=== PATIENT | male | born 1990 | race African-American/Black ===

== ENCOUNTER 2017-10-24 19:53 | Emergency (ER) | payer BC, OTHER ==
[2017-10-24 20:08] VITALS: BP 117/81; PULSE 90; TEMP 98.3; BMI 23.1
--- NOTE | 2017-10-24 21:09 | PDOC ---
History of Present Illness - General History Source: Patient Exam Limitations: No Limitations - History of Present Illness Initial Comments: 10/24/17 21:19 The patient is a 27 year old male with no significant PMH who presents to the emergency department with a laceration beneath the left eyebrow. The patient states he was playing basketball at around 5:00PM today when he accidently slammed into another player's head. The laceration is not actively bleeding during presentation. Patient states his tetanus shot is up to date. The patient denies LOC, nausea, vomiting, lightheadedness, double vision or difficulty ambulating after the incident. The patient denies any prior history of problems with wound healing. Allergies: NKA Past surgical history: None reported. Social history: No reported alcohol, drug, or cigarette use. PCP: Dr. Doe Zhu <Sabine Hammond - Last Filed: 10/24/17 21:27> <Mirian Castillo - Last Filed: 10/25/17 05:35> - General Chief Complaint: Injury Stated Complaint: LACERATION Time Seen by Provider: 10/24/17 19:57 Past History <Sabine Hammond - Last Filed: 10/24/17 21:27> - Past Medical History COPD: No - Immunization History Td Vaccination: Yes Immunization Up to Date: Yes - Suicide/Smoking/Psychosocial Hx Smoking Status: No Smoking History: Never smoked Number of Cigarettes Smoked Daily: 0 Cigars Per Day: 0 Hx Alcohol Use: No Drug/Substance Use Hx: No Substance Use Type: None <Mirian Castillo - Last Filed: 10/25/17 05:35> - Past Medical History Allergies/Adverse Reactions: Allergies Allergy/AdvReac Type Severity Reaction Status Date / Time No Known Allergies Allergy Verified 01/06/16 04:49 Home Medications: Ambulatory Orders NK [No Known Home Medication] 01/06/16 Review of Systems - Review of Systems Able to Perform ROS?: Yes Comments:: 10/24/17 21:19 All systems are reviewed and negative except as noted in the HPI <Sabine Hammond - Last Filed: 10/24/17 21:27> *Physical Exam - Vital Signs Last Vital Signs Temp Pulse Resp BP Pulse Ox 98.3 F 90 16 117/81 98 10/24/17 20:00 10/24/17 20:00 10/24/17 20:00 10/24/17 20:00 10/24/17 20:00 - Physical Exam Comments: 10/24/17 21:19 GENERAL: Awake, alert, and fully oriented, in no acute distress HEAD: (+) 2cm full thickness, linear, horizontal laceration below the left eyebrow. LUNGS: Breath sounds equal, clear to auscultation bilaterally. No wheezes, and no crackles HEART: Regular rate and rhythm, normal S1 and S2, no murmurs, rubs or gallops NEUROLOGICAL: Cranial nerves II through XII grossly intact. Normal speech, normal gait SKIN: Warm, Dry, normal turgor, no rashes noted. <Sabine Hammond - Last Filed: 10/24/17 21:27> - Vital Signs Last Vital Signs Temp Pulse Resp BP Pulse Ox 98.3 F 90 16 117/81 98 10/24/17 20:00 10/24/17 20:00 10/24/17 20:00 10/24/17 20:00 10/24/17 20:00 <Mirian Castillo - Last Filed: 10/25/17 05:35> Procedures - Laceration/Wound Repair Left Upper Eye Wound Length: to 2.5 cm Wound Explored: clean Wound's Depth, Shape: linear Irrigated w/ Saline: Yes Betadine Prep: No (Hibiclens/) Anesthesia: 1% Lidocaine (ethanol) Amount of Anesthetic (ccs): 1 Wound Repaired With: Sutures Suture Size/Type: 5:0 Number of Sutures: 4 Layer Closure: No Sterile Dressing Applied: No Splint Applied: No Sling Applied: No Progress: Area around left eyebrow/upper eye laceration cleansed using ethanol/Hibiclens solution sterilely draped. 1 mL of 1% lidocaine used for local anesthesia. Wound edges closely approximated and wound closed using 4 interrupted sutures of 5-0 nylon. Prior to closure, wound base explored. No evidence of muscle disruption or blood vessel injury. After closure, bacitracin ointment was placed on the wound. Patient tolerated procedure well <Mirian Castillo - Last Filed: 10/25/17 05:35> Medical Decision Making - Medical Decision Making Documentation has been prepared under my direction and personally reviewed by me in its entirety. I attest that this documented accurately reflects all work, treatment, procedures and medical decision making performed by me. As noted above, this 27-year-old man, otherwise healthy, presents with left eyebrow laceration sustained when he bumped against another player while playing basketball just prior to presentation. Patient had no loss of consciousness and has no other associated neurologic symptoms. There is no evidence of injury to the orbit; closure wound as noted above. No evidence of muscle or blood vessel damage. Patient discharged with instructions keep his head elevated overnight and keep wound dry for the next 2 days. Bacitracin or Neosporin should be kept on the wound surface until suture removal. Suture removal was suggested to be on October 30. <Mirian Castillo - Last Filed: 10/25/17 05:35> *DC/Admit/Observation/Transfer - Attestations Scribe Attestion: 10/24/17 21:21 Documentation prepared by Sabine Hammond, acting as medical receptionist assistant for Mirian Castillo MD. <Sabine Hammond - Last Filed: 10/24/17 21:27> <Mirian Castillo - Last Filed: 10/25/17 05:35> Diagnosis at time of Disposition: Laceration of left eyebrow Qualifiers: Encounter type: initial encounter Qualified Code(s): S01.112A - Laceration without foreign body of left eyelid and periocular area, initial encounter - Discharge Dispostion Disposition: HOME Condition at time of disposition: Stable - Referrals Referrals: Doe Zhu MD [Primary Care Provider] - - Patient Instructions Printed Discharge Instructions: How to Care for a Laceration After Repair Additional Instructions: Keep head elevated on extra pillow tonight Keep wound as dry as possible for the next 48 hours After first 2 days, can wet briefly but no immersion until sutures out Tylenol as needed for pain for the first 2 days, then can use either Tylenol/ Motrin/Aleve Bacitracin or Neosporin ointment to wound twice a day until sutures removed Have sutures removed on October 30 Return or see your doctor if wound becomes more swollen or painful - Post Discharge Activity
== END 2017-10-24 21:13 | disposition home or self-care (01) ==
LOC: FER 19:53
PROC: 08QPXZZ Repair Left Upper Eyelid, External Approach (ICD-10-PCS; principal; 2017-10-24)
DX: S01.112A Laceration without foreign body of left eyelid and periocular area, initial encounter (principal); W51.XXXA Accidental striking against or bumped into by another person, initial encounter; Y93.67 Activity, basketball; Y92.9 Unspecified place or not applicable
CPT/HCPCS: 99281-25

== ENCOUNTER 2017-10-30 15:49 | Emergency (ER) | payer BC ==
[2017-10-30 15:58] VITALS: BP 118/53; PULSE 61; TEMP 98; BMI 21.9
--- NOTE | 2017-10-30 16:14 | PDOC ---
Suture Removal/Wound Check HPI - History of Present Illness Chief Complaint: Suture/Staple Removal (other) Stated Complaint: SUTURE REMOVAL Time Seen by Provider: 10/30/17 15:59 History Source: Yes: Patient Treated at: [facility] ED Date of Last ED visit: 10/24/17 - Previous ED Treatment Type of procedure performed on last visit: Yes: Laceration Repair Past History - Past Medical History Allergies/Adverse Reactions: Allergies Allergy/AdvReac Type Severity Reaction Status Date / Time No Known Allergies Allergy Verified 10/30/17 15:55 Home Medications: Ambulatory Orders NK [No Known Home Medication] 01/06/16 COPD: No Other medical history: DENIES. - Immunization History Td Vaccination: Yes Immunization Up to Date: Yes - Suicide/Smoking/Psychosocial Hx Smoking Status: No Smoking History: Never smoked Number of Cigarettes Smoked Daily: 0 Cigars Per Day: 0 Information on smoking cessation initiated: No Hx Alcohol Use: No Drug/Substance Use Hx: No Substance Use Type: None Suture Removal/Wound Check PE - Physical Exam Laceration/Wound Check Symptoms: denies: Pain, Fever, Chills, Redness Location of Laceration/Wound: left: Head (well healing lac to L brow, sutures intact, no e/o infection) *Review of Systems - Review of Systems Constitutional: No: Chills, Fever *Physical Exam - Vital Signs Last Vital Signs Temp Pulse Resp BP Pulse Ox 98 F 61 19 118/53 99 10/30/17 15:55 10/30/17 15:55 10/30/17 15:55 10/30/17 15:55 10/30/17 15:55 Medical Decision Making - Medical Decision Making 10/30/17 16:11 27 yo M, s/p suture repair to L eyebrow lac at [place] 7 days ago, here for removal. No pain, redness or fever. Pt well david w/ well healing wound. 4 sutures removed without complication 10/30/17 16:14 *DC/Admit/Observation/Transfer Diagnosis at time of Disposition: Visit for suture removal - Discharge Dispostion Disposition: HOME Condition at time of disposition: Good - Referrals - Patient Instructions Printed Discharge Instructions: DI for Suture Removal - Post Discharge Activity
== END 2017-10-30 16:34 | disposition home or self-care (01) ==
LOC: JERFT 15:49
DX: Z48.02 Encounter for removal of sutures (principal)
CPT/HCPCS: 99281-25